=== PATIENT | female | born 1975 | race Caucasian/White ===

== ENCOUNTER 2023-04-12 08:54 | Day surgery (SDC) | payer SELFPAY ==
[2023-04-11 15:48] LABS: Absolute Lymphocytes (CBC) 2.2 K/uL (0.7-4.9); Hematocrit 38.5 % (36.0-45.0); Lymphocytes % 28.2 % (15.3-44.8); MCV 81.9 fL (80-100); MPV 8.6 fL (7.6-11.3); Platelets 292 thou/uL (152-406)
[2023-04-11 16:01] LABS: Albumin 3.8 g/dL (3.4-5.0); Bilirubin Direct 0.1 mg/dL (0-0.2); Bilirubin Indirect, Calculated 0.3 mg/dL (0.2-0.8); Bilirubin Total 0.4 mg/dL (0.2-1.0); Protein, Total 7.6 g/dL (6.4-8.2)
--- NOTE | 2023-04-11 17:15 | RAD REPORT ---
EXAM DESCRIPTION: RAD - Chest Pa And Lat (2 Views) - 04/11/2023 3:39 pm CLINICAL HISTORY: Pre op pending cholecystectomy COMPARISON: No comparisons TECHNIQUE: PA and lateral views of the chest were obtained. FINDINGS: The lungs are clear. Heart size is normal and central vasculature is within normal limits. No pleural effusion or pneumothorax seen. No acute bony finding noted. IMPRESSION: No acute cardiopulmonary process.
[2023-04-12] MEDS ORDERED: CEFOXITIN SODIUM 1 GM/VIAL ONE (09:25)
[2023-04-12] MEDS ORDERED: Ringers Lactate 1,000 ML IV ONE (09:25)
[2023-04-12 09:48] VITALS: O2SAT 100
[2023-04-12] MEDS ORDERED: propofoL 200 MG/20 ML VIAL IV ONE (11:02)
[2023-04-12] MEDS ORDERED: FENTANYL CITR 100 MCG/2 ML ONE (11:03)
[2023-04-12] MEDS ORDERED: LIDOCAINE 2% MPF 5 ML VIAL ONE (11:04)
[2023-04-12] MEDS ORDERED: MIDAZOLAM HCL 2 MG/2 ML INJ ONE (11:04)
[2023-04-12] MEDS ORDERED: ONDANSETRON 4 MG/2 ML VIAL ONE ×2 (11:05→13:38)
[2023-04-12] MEDS: CIPROFLOXACIN 400mg IV 400 MG/200 ML BAG IV ONE ×2 (11:08→11:13)
[2023-04-12] MEDS ORDERED: ROCURONIUM 50 MG/5 ML VIAL IV ONE (11:09)
[2023-04-12] MEDS ORDERED: GLYCOPYRROLATE 0.2 MG/ML SYR ONE ×2 (11:09→11:10)
[2023-04-12] MEDS ORDERED: NEOSTIGMINE 1 MG/ML -10 ML VIAL ONE (11:12)
[2023-04-12] MEDS ORDERED: dexAMETHasone 4 MG/ML VIAL ONE (11:41)
--- NOTE | 2023-04-12 11:57 | P.BOP ---
Preoperative diagnosis: acute cholecystitis, symptomatic cholelithiasis Postoperative diagnosis: same Primary procedure: Laparosopic cholecystectomy Dried Yeast Supervisor: REDD RAMOS (CATERING CHEF) Estimated blood loss: <10cc Specimen: gb Findings: as above Anesthesia: General Complications: None Transferred to: Recovery Room Condition: Good
[2023-04-12] MEDS ORDERED: MEPERIDINE HCL 25 MG/ML SYR ONE (12:15)
[2023-04-12] MEDS ORDERED: KETOROLAC 30 MG/ML INJ ONE (12:17)
[2023-04-12] MEDS ORDERED: HYDROCODONE/APAP 7.5/325 MG TAB ONE (13:38)
[2023-04-12 14:13] VITALS: BP 103/56; TEMP 97.7
--- NOTE | 2023-04-12 15:44 | OP ---
Date of Procedure: 04/12/2023 Surgeon: Edward Luna MD Inspector And Mender: KAREN Andre. Preoperative Diagnoses: Acute cholecystitis, symptomatic cholelithiasis. Postoperative Diagnosis: Acute cholecystitis, symptomatic cholelithiasis. Procedure: Laparoscopic cholecystectomy. Estimated Blood Loss: Less than 10 mL. Anesthesia: General plus local. Complications: None. Indication: This is the case of a 47-year-old patient, who comes to us with epigastric right upper q uadrant pain, diagnosed with cholecystitis, symptomatic cholelithiasis. Options of laparoscopic chol ecystectomy versus open were fully explained to the patient with benefits, alternatives, and risks in clude, but not limited to infection, bleeding, damage to adjacent structures, anesthesia complication , choledocholithiasis, bile leak, pancreatitis, NH, and even . She also understands this may no t relieve any symptoms. She might need more than one surgical intervention. She understood, signed a consent. Procedure In Detail: The patient was brought to the operating room, placed in supine position. Anes thesia was done without complication. Abdominal area was prepped and draped in the usual sterile fas hion. Marcaine 0.5% was injected for local anesthetic followed by sharp incision of the skin in the infraumbilical region. Incision was carried down to fascia, which was opened under direct vision. V icryl #1 placed inside the fascia. Heladio trocar was carefully introduced. Pneumoperitoneum was obt ained. I placed 3 more trocars, 5 mm each one of them, 1 in epigastric area and 2 in the right upper quadrant using same technique, which was consisted of local anesthetic, sharp incision of the skin a nd introduction of the trocars under direct vision. This allowed me to put a grasper in the fundus o f the gallbladder, another grasper in the infundibulum retracting the gallbladder in the inferolatera l fashion, exposing the triangle of Calot, and obtaining critical view. Cystic duct and cystic arter y were clearly isolated circumferentially and a connection between those and the gallbladder were teresa jamilah identified. We proceeded to ligate those by using at least 3 clips proximal, 1 clip distal, lig ation in the middle. Same was done with the cystic artery. No bile leak, no bleeding. The gallblad patt was removed from the liver using Bovie cauterizer and removed from the abdominal cavity using End oCatch through the umbilical incision. The area was inspected once again. No bile leak, no bleeding . At that moment, I proceeded to remove the trocars under direct vision. Deflated the pneumoperiton eum. Closed the fascia with #1 Vicryl. Irrigated subcutaneous tissue, closed that with 3-0 chromic and skin with 3-0 chromic in a subcuticular fashion and Steri-Strips on top. Sponge count, instrumen t counts correct. The patient tolerated the procedure well. The patient was sent to recovery in sta ble condition. FELIZ/MERCEDES Voice ID: [id number] Report ID: [id number]
--- NOTE | 2023-04-12 15:44 | DS ---
Date of Discharge: 04/12/2023 Diagnoses: Acute cholecystitis, symptomatic cholelithiasis. Procedure: Laparoscopic cholecystectomy. Activity: As tolerated. No heavy lifting. Plan: Follow up in my office in 1 week. Call for appointment at [phone]. Keep area dry for 48 josey rs, then may shower. Keep Steri-Strips intact. BRI Voice ID: [id number] Report ID: [id number]
--- NOTE | 2023-04-12 18:28 | EKG ---
Test Date: 2023-04-11 Test Time: 15:13:36 Channel Cementer: JOHN MEASUREMENT RESULTS: Intervals: Rate: 77 DE: 130 QRSD: 84 QT: 360 QTc: 407 [place]: P: 79 DE: 130 QRS: 85 T: 82 INTERPRETIVE STATEMENTS: Normal sinus rhythm Normal ECG No previous ECG available for comparison Electronically Signed On 04-12-23 18:25:45 CDT by Salvador Isaac
== END 2023-04-12 14:40 | disposition home or self-care (01) ==
LOC: OR 08:54
PROVIDERS: ATTEND Surgery
PROC: 0FT44ZZ Resection of Gallbladder, Percutaneous Endoscopic Approach (ICD-10-PCS; principal; 2023-04-12 10:45)
DX: K80.10 Calculus of gallbladder with chronic cholecystitis without obstruction (principal); R10.13 Epigastric pain
CPT/HCPCS: 36415; 71046; 80048; 80076; 83690; 84703; 85025; 88304; 93005; J0694; J0744; J1100; J2001; J2175; J2250; J2405; J2704; J2710; J3010; J7120

== ENCOUNTER 2023-04-12 17:36 | Emergency (ER) | payer SELFPAY ==
--- OUTSIDE RECORDS SUMMARY | 2023-04-12 17:48 | XMS REPORT | Continuity of Care Document ---
:1975 Author Organization [facility] t Address [address] [place] [address] [place] [id number] Care Team Providers Name Role Phone Mary Ellen Mooney MD Primary Care Physician Doctor Unassigned, [place] Attending Clinician Unavailable CORINE SEGURA III Attending Clinician Unavailable King CONCHITA MD, James C Attending Clinician Unknown, Attending Attending Clinician Unavailable RADIOLOGY Attending Clinician Unavailable Radiology Attending Clinician Unavailable Mary Ellen Mooney MD Attending Clinician MARY ELLEN MOONEY Attending Clinician Unavailable ROSSY TEE Admitting Clinician Unavailable Problems Condition Condition Condition Status Onset Resolution Last Treating Co mments Source Name Details Category Date Date Treatment Clinician Date Acute left Acute left Disease Active U nivers flank pain flank pain 6-08 it y of 00:00: [place] 00 [facility] Acute LUQ Acute LUQ Disease Active Uni vers pain pain 6-08 ity of 00:00: [place] 00 [facility] Muscle Muscle Disease Active Univers spasm spasm 6-08 ity of 00:00: [place] 00 [facility] Non-produc Non-produc Disease Active U nivers tive cough tive cough 6-08 it y of 00:00: [place] 00 [facility] Acute Acute Disease Active Univers midline midline 6-08 ity of low back low back 00:00: [place] pain with pain with 00 Medi nora left-sided left-sided Br anch sciatica sciatica Allergies, Adverse Reactions, Alerts Allergy Allergy Status Severity Reaction(s) Onset Inactive Treating Comm ents Source Name Type Date Date Clinician SULFA Drug Active Diarrhea Univers (SULFONA Class 6-10 ity of MIDE 00:00: [place] ANTIBIOT 00 Medical ICS) Branch Sulfa Propensi Active Diarrhea Bloody Univer s (Sulfona ty to 6-10 diarrhea ity of mide adverse 00:00: and rash [place] Antibiot reaction 00 Medica l ics) s Branch Sulfa Propensi Active Diarrhea Bloody Univer s (Sulfona ty to 6-10 diarrhea ity of mide adverse 00:00: and rash [place] Antibiot reaction 00 Medica l ics) s Branch Erythrom Propensi Active Other - See U nivers ycin ty to comments 6-08 ity of adverse 00:00: [place] reaction 00 Medical s Branch ERYTHROM DRUG Active Unknown-Cmnt Un mattie YCIN 6-08 ity of 00:00: [place] 00 Medical Branch NO KNOWN Drug Active Univers ALLERGIE Class ity of S [facility] Social History Social Habit Start Date Stop Date Quantity Comments Source Exposure to Not sure [facility]-CoV-2 [facility] (event) [place] Tobacco use and 2021-02-02 2021-02-02 Smokeless tobacco Un iversity of exposure 00:00:00 00:00:00 non-user [facility] Sex Assigned At [birth year] Universit y of 00:00:00 00:00:00 [facility] Smoking Status Start Date Stop Date Source Unknown if ever smoked [facility] y [facility] Never smoked tobacco [facility] Medications Ordered Filled Start Stop Current Ordering Indication Dosage Frequency Signature Comments Components Source Medication Medication Date Date Medication? Clinician (SIG) Name Name omeprazole Yes [id number] 40mg Take 1 Univers 40 mg 2-16 capsule by ity of capsule 00:00: mouth 2 (two) Medical times [place] daily. omeprazole Yes [id number] 40mg Take 1 Univers 40 mg 2-16 capsule by ity of capsule 00:00: mouth 2 (two) Medical times [place] daily. metroNIDAZO Yes Univer s LE 250 mg 2-10 ity of tablet 00:00: [place] 00 Medical Branch rifAXIMin Yes Univers (XIFAXAN) 2-10 ity of 550 mg 00:00: [place] tablet 00 Medical Branch metroNIDAZO Yes Univer s LE 250 mg 2-10 ity of tablet 00:00: Medical Branch rifAXIMin Yes Univers (XIFAXAN) 2-10 ity of 550 mg 00:00: [place] tablet Medical Branch gadobenate 2021- No [id number] .2mL/kg 0.2 mL/kg, Univers dimeglumine 09-23 Intravenou i ty of (MULTIHANCE 21:15: 21:09 s, ONCE, 1 [place] -15 mL) 00 :00 dose, On Medical injection Veda Branch 0.2 mL/kg 09/23/21 at 1515, Routine tc 2020-08- No [id number] 10.1mCi 10.1 Unive rs 99m-mebrofe 10-18 millicurie i ty of jose antonio 17:45: 17:39 , [place] injection 00 :00 Intravenou Medi nora 10.1 s, ONCE, 1 Branch millicurie dose, On 08/17/21 at 1145, Routine acetaminoph Yes 1{tbl} Take 1 Un mattie en-codeine 6-10 tablet by ity of 300-30 mg 00:00: mouth. [place] tablet Medical Branch tamsulosin Yes .4mg Take 0.4 Uni vers 0.4 mg 24 6-10 mg by ity of hr capsule 00:00: mouth. [place] [facility] Branch acetaminoph Yes 1{tbl} Take 1 Un mattie en-codeine 6-10 tablet by ity of 300-30 mg 00:00: mouth. [place] tablet Medical Branch tamsulosin Yes .4mg Take 0.4 Uni vers 0.4 mg 24 6-10 mg by ity of hr capsule 00:00: mouth. [place] [facility] tiZANidine Yes [id number] 2mg Take 1 Univers 2 mg tablet 6-08 tablet by ity of 00:00: mouth [place] 00 every 8 Medical (eight) Branch hours as needed (muscle spasms). acetaminoph Yes [id number] 650mg Take 1 Univers en 650 mg 6-08 tablet by ity o f CR tablet 00:00: mouth [place] 00 every 8 Medical (eight) Branch hours as needed for Pain or Fever. benzonatate 2020-0 Yes [id number] 100mg Take 1 Univers (TESSALON 6-08 capsule by ity of PERLES) 100 00:00: mouth 3 Yo as mg capsule 00 (three) Medica l times Branch daily as needed for Cough. doxycycline 2020-0 Yes [id number] 100mg Take 1 Univers hyclate 100 6-08 tablet by ity of mg tablet 00:00: mouth 2 [place] 00 (two) Medical times Branch daily. tiZANidine 2020-0 Yes [id number] 2mg Take 1 Univers 2 mg tablet 6-08 tablet by ity of 00:00: mouth [place] 00 every 8 Medical (eight) Branch hours as needed (muscle spasms). acetaminoph 2020-0 Yes [id number] 650mg Take 1 Univers en 650 mg 6-08 tablet by ity o f CR tablet 00:00: mouth [place] 00 every 8 Medical (eight) Branch hours as needed for Pain or Fever. benzonatate 2020-0 Yes [id number] 100mg Take 1 Univers (TESSALON 6-08 capsule by ity of PERLES) 100 00:00: mouth 3 Yo as mg capsule 00 (three) Medica l times Branch daily as needed for Cough. doxycycline 2020-0 Yes [id number] 100mg Take 1 Univers hyclate 100 6-08 tablet by ity of mg tablet 00:00: mouth 2 [place] 00 (two) Medical times Branch daily. tiZANidine 2020-0 Yes [id number] 2mg Take 1 Univers 2 mg tablet 6-08 tablet by ity of 00:00: mouth [place] 00 every 8 Medical (eight) Branch hours as needed (muscle spasms). acetaminoph 2020-0 Yes [id number] 650mg Take 1 Univers en 650 mg 6-08 tablet by ity o f CR tablet 00:00: mouth [place] 00 every 8 Medical (eight) Branch hours as needed for Pain or Fever. benzonatate 202-0 Yes [id number] 100mg Take 1 Univers (TESSALON 6-08 capsule by ity of PERLES) 100 00:00: mouth 3 Yo as mg capsule 00 (three) Medica l times Branch daily as needed for Cough. doxycycline 2020-0 Yes [id number] 100mg Take 1 Univers hyclate 100 6-08 tablet by ity of mg tablet 00:00: mouth 2 [place] 00 (two) Medical times Branch daily. tiZANidine 2020-0 Yes [id number] 2mg Take 1 Univers 2 mg tablet 6-08 tablet by ity of 00:00: mouth [place] 00 every 8 Medical (eight) Branch hours as needed (muscle spasms). acetaminoph 2020-0 Yes [id number] 650mg Take 1 Univers en 650 mg 6-08 tablet by ity o f CR tablet 00:00: mouth [place] 00 every 8 Medical (eight) Branch hours as needed for Pain or Fever. benzonatate 2020-0 Yes [id number] 100mg Take 1 Univers (TESSALON 6-08 capsule by ity of CINDY) 100 00:00: mouth 3 Yo as mg capsule 00 (three) Medica l times Branch daily as needed for Cough. doxycycline 2020-0 Yes [id number] 100mg Take 1 Univers hyclate 100 6-08 tablet by ity of mg tablet 00:00: mouth 2 [place] 00 (two) Medical times Branch daily. tiZANidine 2020-0 Yes [id number] 2mg Take 1 Univers 2 mg tablet 6-08 tablet by ity of 00:00: mouth [place] 00 every 8 Medical (eight) Branch hours as needed (muscle spasms). acetaminoph 2020-0 Yes [id number] 650mg Take 1 Univers en 650 mg 6-08 tablet by ity o f CR tablet 00:00: mouth [place] 00 every 8 Medical (eight) Branch hours as needed for Pain or Fever. benzonatate 2020-0 Yes [id number] 100mg Take 1 Univers (TESSALON 6-08 capsule by ity of CINDY) 100 00:00: mouth 3 Yo as mg capsule 00 (three) Medica l times Branch daily as needed for Cough. doxycycline 2020-0 Yes [id number] 100mg Take 1 Univers hyclate 100 6-08 tablet by ity of mg tablet 00:00: mouth 2 [place] 00 (two) Medical times Branch daily. tiZANidine 2020-0 Yes [id number] 2mg Take 1 Univers 2 mg tablet 6-08 tablet by ity of 00:00: mouth [place] 00 every 8 Medical (eight) Branch hours as needed (muscle spasms). acetaminoph 202-0 Yes [id number] 650mg Take 1 Univers en 650 mg 6-08 tablet by ity o f CR tablet 00:00: mouth [place] 00 every 8 Medical (eight) Branch hours as needed for Pain or Fever. benzonatate 2020-0 Yes [id number] 100mg Take 1 Univers (TESSALON 6-08 capsule by itnkechi of PERLFANNIE) 100 00:00: mouth 3 Yo as mg capsule 00 (three) Medica l times Branch daily as needed for Cough. doxycycline 2020-0 Yes [id number] 100mg Take 1 Univers hyclate 100 6-08 tablet by ity of mg tablet 00:00: mouth 2 [place] 00 (two) Medical times Branch daily. tiZANidine 2020-0 Yes [id number] 2mg Take 1 Univers 2 mg tablet 6-08 tablet by ity of 00:00: mouth [place] 00 every 8 Medical (eight) Branch hours as needed (muscle spasms). acetaminoph 2020-0 Yes [id number] 650mg Take 1 Univers en 650 mg 6-08 tablet by ity o f CR tablet 00:00: mouth [place] 00 every 8 Medical (eight) Branch hours as needed for Pain or Fever. benzonatate 2020-0 Yes [id number] 100mg Take 1 Univers (TESSALON 6-08 capsule by itnkechi of CINDY) 100 00:00: mouth 3 Yo as mg capsule 00 (three) Medica l times Branch daily as needed for Cough. doxycycline 2020-0 Yes [id number] 100mg Take 1 Univers hyclate 100 6-08 tablet by ity of mg tablet 00:00: mouth 2 [place] 00 (two) Medical times Branch daily. tiZANidine 2020-0 Yes [id number] 2mg Take 1 Univers 2 mg tablet 6-08 tablet by ity of 00:00: mouth [place] 00 every 8 Medical (eight) Branch hours as needed (muscle spasms). acetaminoph 2021-0 Yes [id number] 650mg Take 1 Univers en 650 mg 6-08 tablet by ity o f CR tablet 00:00: mouth [place] 00 every 8 Medical (eight) Branch hours as needed for Pain or Fever. benzonatate 202-0 Yes [id number] 100mg Take 1 Univers (TESSALON 6-08 capsule by ity of PERLES) 100 00:00: mouth 3 Yo as mg capsule 00 (three) Medica l times Branch daily as needed for Cough. doxycycline 2020-0 Yes [id number] 100mg Take 1 Univers hyclate 100 6-08 tablet by ity of mg tablet 00:00: mouth 2 [place] 00 (two) Medical times Branch daily. tiZANidine 2020-0 Yes [id number] 2mg Take 1 Univers 2 mg tablet 6-08 tablet by ity of 00:00: mouth [place] 00 every 8 Medical (eight) Branch hours as needed (muscle spasms). acetaminoph 2020-0 Yes [id number] 650mg Take 1 Univers en 650 mg 6-08 tablet by ity o f CR tablet 00:00: mouth [place] 00 every 8 Medical (eight) Branch hours as needed for Pain or Fever. benzonatate 2020-0 Yes [id number] 100mg Take 1 Univers (TESSALON 6-08 capsule by ity of [employer]) 100 00:00: mouth 3 Yo as mg capsule 00 (three) Medica l times Branch daily as needed for Cough. doxycycline 2020-0 Yes [id number] 100mg Take 1 Univers hyclate 100 6-08 tablet by ity of mg tablet 00:00: mouth 2 [place] 00 (two) Medical times Branch daily. tiZANidine 2020-0 Yes [id number] 2mg Take 1 Univers 2 mg tablet 6-08 tablet by ity of 00:00: mouth [place] 00 every 8 Medical (eight) Branch hours as needed (muscle spasms). acetaminoph 2020-0 Yes [id number] 650mg Take 1 Univers en 650 mg 6-08 tablet by ity o f CR tablet 00:00: mouth [place] 00 every 8 Medical (eight) Branch hours as needed for Pain or Fever. benzonatate 2021-0 Yes [id number] 100mg Take 1 Univers (TESSALON 6-08 capsule by ity of [email or web address]) 100 00:00: mouth 3 Yo as mg capsule 00 (three) Medica l times Branch daily as needed for Cough. doxycycline 2020-0 Yes [id number] 100mg Take 1 Univers hyclate 100 6-08 tablet by ity of mg tablet 00:00: mouth 2 [place] 00 (two) Medical times Branch daily. Vital Signs Vital Name Observation Time Observation Value Comments Source Systolic blood 2021-10-13 23:37:00 119 mm[Hg] Univer sity of pressure [place] [facility] Diastolic blood 2021-10-13 23:37:00 74 mm[Hg] Unive rsity of pressure [place] [facility] Heart rate 2021-10-13 23:37:00 82 /min Universi ty of [place] [facility] Body temperature 2021-10-13 23:37:00 37.11 Gini Univ ersity of [place] [facility] Respiratory rate 2021-10-13 23:37:00 16 /min Univ ersity of [place] [facility] Body height 2021-10-13 23:37:00 162.6 cm Universi ty of [place] [facility] Body weight 2021-10-13 23:37:00 53.388 kg Universi ty of [place] [facility] BMI 2021-10-13 23:37:00 20.20 kg/m2 Universi ty of [place] [facility] Oxygen saturation in 2021-10-13 23:37:00 97 /min University of Arterial blood by [place] [employer] nora Pulse oximetry Branch Systolic blood 2021-02-02 23:16:00 109 mm[Hg] Univer sity of pressure [place] [facility] Diastolic blood 2021-02-02 23:16:00 65 mm[Hg] Unive rsity of pressure [place] [facility] Heart rate 2021-02-02 23:16:00 90 /min Universi ty of [place] [facility] Body temperature 2021-02-02 23:16:00 37.17 Gini Univ ersity of [place] [facility] Respiratory rate 2021-02-02 23:16:00 18 /min Univ ersity of [place] [facility] Body height 2021-02-02 23:16:00 162.6 cm Universi ty of [place] [facility] Body weight 2021-02-02 23:16:00 54.432 kg Universi ty of [place] [facility] BMI 2021-02-02 23:16:00 20.60 kg/m2 Universi ty of [place] [facility] Oxygen saturation in 2021-02-02 23:16:00 99 /min University of Arterial blood by [place] [employer] nora Pulse oximetry Branch Procedures Procedure Date / Time Performing Clinician Source Performed AUTHORIZATION FOR 2022-06-06 05:01:00 Doctor Unassigned, No [facility] [place] [facility]I Name Medical Branch MR ABDOMEN W WO CONTRAST 2021-09-23 20:29:00 Requisition, Paper [facility] NM HEPATOBILIARY W 2021-08-17 19:42:00 Rossy Tee [facility] INTERVENTION [facility] NM HEPATOBILIARY W 2021-08-17 19:42:00 Josr Rossy [facility] US ABDOMEN COMPLETE 2021-08-12 01:00:00 [facility] ASSIGNMENT OF BENEFITS 2021-08-12 00:01:58 Doctor Unassdori, Lindsey [facility] XR KUB 2021-02-03 00:31:21 EdemeMary Ellen thomas [facility] URINALYSIS 2021-02-02 23:59:00 Mary Ellen Mooney [facility] POCT URINALYSIS 2021-02-02 23:58:00 Mary Ellen Mooney [facility] Encounters Start End Encounter Admission Attending Care Care Encounter Source Date/Time Date/Time Type Type Clinicians Facility Department ID 2022-06-06 2022-06-06 Orders Doctor SUSIE 1.2.840.114 [id number] Univers 00:00:00 00:00:00 Only Unassigned, ANASTASIIA [id number] ity of [place] [facility] 4.2.7.2.686 Yo as [phone] [address] 2021-10-13 2021-10-13 Outpatient R SHAUN III, [facility] [id number] Univers 17:40:00 18:05:08 CORINE ity [facility] 2021-10-13 2021-10-13 Urgent Corine Segura [facility] 1.2.840.114 [id number] Univers 17:40:00 18:00:00 Care Unknown, Attending HEALTH [id number] ity of [place] 4.2.7.2.686 Yo as RAYMOND?BLEA [phone] Or leif URIBE [address] [place] [address] MEDICAL OFFICE BUILDING 2021-09-23 2021-09-23 Outpatient R RADIOLOGY [facility] [id number] Univers 13:15:26 23:59:00 ity [facility] 2021-09-23 2021-09-23 Hospital Radiology [facility] 1.2.840.114 [id number] Univers 13:15:26 23:59:00 Encounter [place] [id number] ity [facility] 4.2.7.2.686 [facility] [id number] [facility] [address] [place] 2021-08-17 2021-08-17 [facility] Radiology [facility] 1.2.840.114 [id number] Univers 11:15:03 23:59:00 Encounter SPECIALTY [id number] ity of CARE 4.2.7.2.686 [facility] CENTER AT [phone] Or leif RAMIREZ 805 [facility] 2021-08-17 2021-08-17 [facility] Radiology [facility] 1.2.840.114 [id number] Univers 11:13:28 11:14:00 Encounter SPECIALTY 350.1.13.10 ity of CARE 4.2.7.2.686 [facility] s CENTER AT [id number] Or leif RAMIREZ 5 [facility] 2021-08-17 2021-08-17 Outpatient R RADIOLOGY [facility] [id number] Univers 11:13:28 11:14:00 ity of [facility] 2021-08-11 2021-08-11 Outpatient R RADIOLOGY [facility] [id number] Univers 18:04:22 23:59:00 ity of [facility] 2021-08-11 2021-08-11 [facility] Radiology [facility] 1.2.840.114 [id number] Univers 18:00:00 23:59:00 Encounter [place] 350.1.13.10 ity of [place] 4.2.7.2.686 [facility] [id number] [facility] [address] [place] 2021-08-11 2021-08-11 Orders Doctor SUSIE 1.2.840.114 [id number] Univers 00:00:00 00:00:00 Only Unassigned, ANASTASIIA 350.1.13.10 ity of [place] [facility] 4.2.7.2.686 Yo [id number] [facility] 009 Branch 2021-02-03 2021-02-03 Telephone Vinicio [facility] 1.2.840.114 [id number] Univers 00:00:00 00:00:00 Mary Ellen Leslie 350.1.13.10 i [place].686 [place] [id number] [address] Building 2021-02-02 2021-02-02 Hospital [facility] 1.2.840.114 [id number] Univers 19:22:57 23:59:00 Encounter Mary Ellen Leslie 350.1.13.10 ity of [place]2.7.2.686 [place] [id number] [facility] [address] [place] 2021-02-02 2021-02-02 Urgent [facility] 1.2.840.114 [id number] Univers 18:12:54 19:13:42 Care Mary Ellen Vincent 350.1.13.10 it y of [place] 4.2.7.2.686 Yo as Professio [phone] [address] Office Building One 2021-02-02 2021-02-02 Outpatient R [facility] [id number] Univers 18:20:00 18:20:00 MARY ELLEN ity of [facility] 2021-02-02 2021-02-02 Letter Doctor SUSIE 1.2.840.114 [id number] Univers 00:00:00 00:00:00 (Out) Unassigned, ANASTASIIA 350.1.13.10 ity of [place] [facility] 4.2.7.2.686 Yo as [id number] [address] 2021-02-02 2021-02-02 Letter Doctor SUSIE 1.2.840.114 [id number] Univers 00:00:00 00:00:00 (Out) Unassigned, ANASTASIIA 350.1.13.10 ity of [place] [facility] 4.2.7.2.686 Yo as [id number] [address] Results Test Description Test Time Test Comments Results Result Comments Source URINALYSIS 2021-02-03 01:47:31 Test Item Value Reference Range Interpretation Comme nts APPEARANCE (test code = Clear Clear 1769326002) COLOR (test code = 7756301470) Yellow Yellow PH (test code = 4326146007) 4.8-8.0 SP GRAVITY (test code = 1.003-1.030 1931276880) GLU U QUAL (test code = Normal Normal 7511909881) BLOOD (test code = 2177539443) Negative Negative KETONES (test code = 2677904801) Negative Negative PROTEIN (test code = 2887-8) Negative Negative UROBILIN (test code = 6459479709) Normal Normal BILIRUBIN (test code = Negative Negative 3467041873) NITRITE (test code = 1430677079) Negative Negative LEUK MY (test code = Negative Negative 3297121613) RBC/HPF (test code = 6641919550) <1 See_Comment [Automated message] The system which ge nerated this result transmit osmany reference range: 0 - 3 HP F. The reference range was not used to interpret th is result as normal/abnormal . WBC/HPF (test code = 7019601785) <1 See_Comment [Automated message] The system which ge nerated this result transmit osmany reference range: 0 - 5 HP F. The reference range was not used to interpret th is result as normal/abnormal . BACTERIA (test code = 4522686990) Negative Negative Lab Interpretation (test code = Normal 94178-5) [facility] URINALYSIS W SPECIFIC [id number] 23:59:00 Test Item Value Reference Range Interpretation Comments POCT U SP GRAV (test 1.020 mg/dl 1.005-1.025 code = 3255) POCT PH U (test code = 6 mg/dl 5-8 3254) POCT U LEUK EST (test trace Negative - code = 3263) Negative POCT U NIT (test code neg Negative - = 3262) Negative POCT U PROT (test code neg Negative - = 3259) Negative POCT U GLU (test code norm Negative - = 3256) Negative POCT U KETONE (test neg Negative - code = 3258) Negative POCT U UROBILI (test norm 0.2-1 code = 3260) POCT U BILI (test code neg Negative - = 3261) Negative POCT U BLD (test code neg Negative - = 3257) Negative POCT U COLOR (test yellow code = 3266) POCT U APPEAR (test clear code = 3267) CRISTO (test code = CRISTO) accurate development and interpretation of all internal controls Lab Interpretation Normal (test code = 23094-2) [facility]
--- NOTE | 2023-04-12 20:48 | EDPHYS ---
Physician Documentation [facility] Name: Ari Alston Age: 47 yrs Sex: Female : 1975 Arrival Date: 04/12/2023 Time: 17:36 Bed 17 Private MD: ED Physician Armando Coats HPI: 04/12 22:40 This 47 yrs old Female presents to ER via Ambulatory with complaints of Unable To kb Urinate Post Surgery. 22:40 The patient presents with urinary symptoms, urinary retention. Onset: The kb symptoms/episode began/occurred today. Modifying factors: The symptoms are alleviated by nothing, the symptoms are aggravated by nothing. Associated signs and symptoms: Pertinent positives: unable to urinate. Severity of symptoms: At their worst the symptoms were mild, in the emergency department the symptoms are unchanged. The patient has not experienced similar symptoms in the past. The patient has been recently seen by a physician:. Patient reports she had cholecystectomy this morning by Dr. Luna. States she has not been able to urinate since the surgery. Last urination was 829. Denies any pain, pressure. States she does not have the urge to urinate.. Historical: - Allergies: 18:43 CEPHALOSPORINS; cm10 - PMHx: 18:43 None; cm10 - PSHx: 18:43 Cholecystectomy; cm10 - Immunization history:: Adult Immunizations up to date, Client reports receiving the 2nd dose of the Covid vaccine. - Social history:: Smoking status: Patient denies any tobacco usage or history of. ROS: 22:37 Constitutional: Negative for fever, chills, and weight loss. kb 22:37 : Positive for urinary retention. 22:37 All other systems are negative. Exam: 22:41 Constitutional: This is a well developed, well nourished patient who is awake, alert, kb and in no acute distress. Head/Face: Normocephalic, atraumatic. ENT: Moist Mucous membranes Cardiovascular: Regular rate and rhythm with a normal S1 and S2. No gallops, murmurs, or rubs. No pulse deficits. Respiratory: Respirations even and unlabored. No increased work of breathing. Talking in full sentences Skin: Warm, dry with normal turgor. Normal color. MS/ Extremity: Pulses equal, no cyanosis. Neurovascular intact. Full, normal range of motion. Neuro: Awake and alert, GCS 15, oriented to person, place, time, and situation. Moves all extremities. Normal gait. 22:41 Abdomen/GI: Inspection: Surgical dressings in place, Bowel sounds: normal, Palpation: abdomen is soft and non-tender, in all quadrants. Vital Signs: 18:44 BP 112 / 61; Pulse 81; Resp 16; Temp 98; Pulse Ox 100% ; Weight 56.7 kg; Height 5 ft. 3 cm10 in. ; Pain 0/10; 20:51 BP 127 / 63; Pulse 84; Resp 16; Temp 98.2; Pulse Ox 100% ; cm10 18:44 Body Mass Index 22.14 (56.70 kg, 160.02 cm) cm10 18:44 Pain Scale: Adult cm10 MDM: 18:02 Patient medically screened. kb 22:42 Differential diagnosis: urinary tract infection, Urinary retention. Data reviewed: kb vital signs, nurses notes. Counseling: I had a detailed discussion with the patient and/or guardian regarding the historical points, exam findings, and any diagnostic results supporting the discharge/admit diagnosis, the need for outpatient follow up, a family practitioner, to return to the emergency department if symptoms worsen or persist or if there are any questions or concerns that arise at home. ED course: Patient reports she got the urge to urinate and was able to urinate quite a bit. States she is feeling better and ready to go home.. 04/12 18:02 Order name: Bladder Scanner robby Administered Medications: No medications were administered Disposition: 04/13 10:02 Co-signature as Attending Physician, Armando Coats MD I reviewed the patient's care rt provided by the Advanced Practice Provider and agree with the diagnosis and treatment plan. Disposition Summary: 04/12/23 20:48 Discharge Ordered Location: Home kb Condition: Stable kb Diagnosis - Retention of urine, unspecified - resolved kb Followup: kb - With: Emergency Department - When: As needed - Reason: Worsening of condition Followup: kb - With: Private Physician - When: 2 - 3 days - Reason: Recheck today's complaints, Continuance of care, Re-evaluation by your physician Discharge Instructions: - Discharge Summary Sheet kb - Acute Urinary Retention, Female, [id number] kb Forms: - Medication Reconciliation Form kb - Thank You Letter kb - Antibiotic Education kb - Prescription Opioid Use kb - Patient Portal Instructions kb - Leadership Thank You Letter kb Signatures: Paige Delgado, GEMINI-C ENVIRONMENTAL CHANGE ANALYST-Ckb Armando Coats MD MD rt Kathy Luna, RN RN cm10
--- NOTE | 2023-04-12 20:48 | ER ---
Nurse's Notes [facility] Name: Ari Alston Age: 47 yrs Sex: Female : 1975 Arrival Date: 04/12/2023 Time: 17:36 Bed 17 Private MD: Diagnosis: Retention of urine, unspecified-resolved Presentation: 04/12 18:44 Chief complaint: Patient states: unable to urinate S/P cholecystectomy this morning. Pt cm10 states that she has not urinated since 0830 this morning. Denies any pressure or urge to void. Coronavirus screen: Vaccine status: Patient reports receiving the 2nd dose of the covid vaccine. Ebola Screen: Patient denies travel to an Ebola-affected area in the 21 days before illness onset. No symptoms or risks identified at this time. Initial Sepsis Screen: Does the patient meet any 2 criteria? No. Patient's initial sepsis screen is negative. Does the patient have a suspected source of infection? No. Patient's initial sepsis screen is negative. Risk Assessment: Do you want to hurt yourself or someone else? Patient reports no desire to harm self or others. Onset of symptoms was April 12, 2023. 18:44 Method Of Arrival: Ambulatory cm10 18:44 Acuity: MICHAEL 3 cm10 Triage Assessment: 20:52 General: Appears in no apparent distress. comfortable, Behavior is calm, cooperative. cm10 Historical: - Allergies: 18:43 CEPHALOSPORINS; cm10 - PMHx: 18:43 None; cm10 - PSHx: 18:43 Cholecystectomy; cm10 - Immunization history:: Adult Immunizations up to date, Client reports receiving the 2nd dose of the Covid vaccine. - Social history:: Smoking status: Patient denies any tobacco usage or history of. Screenin:52 [facility] ED Fall Risk Assessment (Adult) History of falling in the last 3 months, cm10 including since admission No falls in past 3 months (0 pts) Confusion or Disorientation No (0 pts) Intoxicated or Sedated No (0 pts) Impaired Gait No (0 pts) Mobility Assist Device Used No (0 pt) Altered Elimination No (0 pt) Score/Fall Risk Level 0 - 2 = Low Risk Oriented to surroundings, Maintained a safe environment. Abuse screen: Denies threats or abuse. Denies injuries from another. Nutritional screening: No deficits noted. Tuberculosis screening: No symptoms or risk factors identified. Assessment: 20:47 Reassessment: Pt able to urinate at this time. Pt states that she feels better. cm10 20:52 Pain: Denies pain. Neuro: No deficits noted. Cardiovascular: No deficits noted. cm10 Respiratory: No deficits noted. Vital Signs: 18:44 BP 112 / 61; Pulse 81; Resp 16; Temp 98; Pulse Ox 100% ; Weight 56.7 kg; Height 5 ft. 3 cm10 in. ; Pain 0/10; 20:51 BP 127 / 63; Pulse 84; Resp 16; Temp 98.2; Pulse Ox 100% ; cm10 18:44 Body Mass Index 22.14 (56.70 kg, 160.02 cm) cm10 18:44 Pain Scale: Adult cm10 ED Course: 17:37 Patient arrived in ED. rg4 17:57 Paige Delgado FNP-C is [facility]. kb 17:57 Armando Coats MD is Attending Physician. kb 18:45 Triage completed. cm10 18:45 Arm band placed on Patient placed in waiting room. cm10 20:52 Patient has correct armband on for positive identification. Provided Education on: N/A. cm10 20:52 No provider procedures requiring assistance completed. Patient did not have IV access cm10 during this emergency room visit. Administered Medications: No medications were administered Medication: 20:51 VIS not applicable for this client. cm10 Outcome: 20:48 Discharge ordered by . kb 20:52 Discharged to home ambulatory, with significant other. cm10 20:52 Condition: good 20:52 Discharge instructions given to patient, Instructed on discharge instructions, follow up and referral plans. Demonstrated understanding of instructions, follow-up care. 20:57 Patient left the ED. cm10 Signatures: Paige Delgado FNP-C FNP-Ckb Garcia, Rubi rg4 Kathy Luna, DELIA RN cm10
[2023-04-12 22:05] VITALS: O2SAT 100
[2023-04-12 22:06] VITALS: BP 127/63; TEMP 98.2
== END 2023-04-12 20:57 | disposition home or self-care (01) ==
LOC: ER 17:36
DX: R33.9 Retention of urine, unspecified (principal); Z88.3 Allergy status to other anti-infective agents